=== PATIENT | male | born 1965 | race Caucasian/White ===

== ENCOUNTER 2024-02-07 16:46 | Inpatient (IN) | payer OTHER ==
[2024-02-07 18:43] VITALS: BMI 34.0
[2024-02-07] MEDS ORDERED: Acetaminophen 650 MG Suppository PR PRN (18:46)
[2024-02-07] MEDS ORDERED: Dextrose 50% Abboject 50 ML SYRINGE SLOW IVP PRN (19:16)
[2024-02-07] MEDS ORDERED: Glucagon 1 MG/ML KIT IM PRN (19:16)
[2024-02-07] MEDS ORDERED: Dextrose 5% in Water 1,000 ML IV PRN (19:16)
[2024-02-07] MEDS: Famotidine/PF 20 mg/2ml Vial SLOW IVP SCH (20:02)
[2024-02-07] MEDS: Ondansetron PF 4 MG/2 ML Vial IVP PRN (20:02)
[2024-02-07] MEDS: Morphine 2 MG/ML VIAL SLOW IVP PRN (20:02)
[2024-02-07] MEDS: Sodium Chloride 0.9% 1,000 ML IV SCH (20:03)
[2024-02-07] MEDS: Insulin Lispro 100 UNIT/ML 10 ML VIAL SC PRN (20:49)
[2024-02-07 23:50] LABS: Bacteria/HPF None Seen HPF (None Seen); Bilirubin Negative (Negative); Blood, Urine Negative (Negative); Clarity Clear (Clear); Glucose, Urine (Dipstick) Greater than 1000 mg/dL (Negative); Ketone, Urine 20 mg/dL (Negative); Leukocyte Negative Leu/uL (Negative); Nitrite Negative (Negative); Protein, Urine (Dipstick) Negative (Neg-Trace); RBC/HPF None Seen HPF (0-3); Specific Gravity, Urine 1.027 (1.002-1.036); Squamous Epithelial 0-3 HPF (0-3); WBC/HPF 0-3 HPF (0-3)
[2024-02-08 01:31] LABS: #Basophils 0.05 10x3/uL (0.0-0.2); #Eosinphils Less than 0.03 10x3/uL (0.0-0.7); %Basophils 0.2 % (0.0-1.0); %Lymphocytes 2.8 % (21.0-51.0); %Monocytes 6.1 % (0.0-10.0); %Neutrophils 90.3 % (42.0-75.0); Hematocrit 49.4 % (42.0-52.0); Mean Corpuscular HGB CONC 34.4 g/dL (32.0-36.0); Mean Corpuscular Hemoglobin 30.2 pg (27.0-31.0); Mean Corpuscular Volume 87.9 fL (78.0-98.0); Mean Platelet Volume 10.6 fL (7.4-10.4); Platelet Count 319 10x3/uL (130-400); RBC Distribution Width 18.5 % (11.5-14.5); Red Blood Cell (RBC) Count 5.62 mill/uL (4.70-6.10)
[2024-02-08 02:16] LABS: ALT (SGPT) 54 U/L (8-55); AST (SGOT) 58 U/L (5-34); Albumin 3.8 g/dL (3.5-5.0); Alkaline Phosphatase 66 U/L (40-110); Anion Gap 22 mmol/L (10-20); BUN (Urea Nitrogen) 33 mg/dL (8.4-25.7); Bilirubin, Total 9.6 mg/dL (0.2-1.2); Calc. Creatinine Clearance 100 mL/min (70-130); Calcium 8.6 mg/dL (7.8-10.44); Carbon Dioxide 13 mmol/L (22-29); Cardiac Risk 2.3 (Less than 4.5); Chloride 109 mmol/L (98-107); Cholesterol 80 mg/dl (< 200 Desired); Estimated GFR 57; Globulin 2.4 g/dL (2.4-3.5); Glucose 299 mg/dL (70-105); HDL Cholesterol 35 mg/dL (>60 Neg Risk); LDL Cholesterol, Calculated 24 mg/dL; Potassium 4.4 mmol/L (3.5-5.1); Protein, Total 6.2 g/dL (6.0-8.3); Sodium 140 mmol/L (136-145); Triglycerides 107 mg/dL (Less than 150)
[2024-02-08 02:17] LABS: Lipase 1970 U/L (8-78)
[2024-02-08] MEDS: Insulin Glargine 30 UNITS/0.3 ML VIAL SC SCH ×2 (02:55→16:46)
[2024-02-08] MEDS: Sodium Chloride 0.9% 1,000 ML IV SCH ×3 (02:55→11:31)
[2024-02-08] MEDS: Lactated Ringer's 1,000 ML IV SCH (02:56)
[2024-02-08 04:40] LABS: Actual Bicarbonate (HCO3v) 17.2 mEq/L (22-28); Base Excess -8.9 mEq/L (-2.0 to +3.0); Calcium, Ionized (venous) 1.06 mmol/L (1.16-1.32); Chloride (VBG) 101 mmol/L (98-106); Hematocrit-VBG 52 % (42.0-52.0); Hemoglobin (Hb) 17.7 g/dL (13.1-17.2); Potassium (VBG) 4.23 mmol/L (3.70-5.30); Sodium 138 mmol/L (133-146); pH (venous) 7.272 (7.32-7.43)
[2024-02-08] MEDS ORDERED: NS 0.9% w/ 20 MEQ KCL 1,000 ML IV PRN (04:47)
[2024-02-08] MEDS ORDERED: Electrolyte Replacement Protocol 1 EACH IVPB PRN (04:47)
[2024-02-08] MEDS ORDERED: Sodium Chloride 0.9% 1,000 ML IV PRN ×4 (04:47)
[2024-02-08 05:01] LABS: Lactic Acid 3.6 mmol/L (0.5-2.2)
[2024-02-08 05:02] VITALS: BP 127/86
[2024-02-08] MEDS: INSULIN REGULAR IN 0.9 % NACL 100 ML IVPB SCH (06:05)
[2024-02-08] MEDS: NS 0.9% w/ 20 MEQ KCL 1,000 ML IV PRN (06:05)
[2024-02-08 06:24] LABS: ALT (SGPT) 52 U/L (8-55); AST (SGOT) 54 U/L (5-34); Albumin 3.8 g/dL (3.5-5.0); Alkaline Phosphatase 62 U/L (40-110); Anion Gap 25 mmol/L (10-20); BUN (Urea Nitrogen) 34 mg/dL (8.4-25.7); Bilirubin, Total 6.2 mg/dL (0.2-1.2); Calc. Creatinine Clearance 90 mL/min (70-130); Calcium 8.6 mg/dL (7.8-10.44); Carbon Dioxide 15 mmol/L (22-29); Chloride 104 mmol/L (98-107); Estimated GFR 50; Globulin 2.4 g/dL (2.4-3.5); Glucose 269 mg/dL (70-105); Potassium 4.2 mmol/L (3.5-5.1); Protein, Total 6.2 g/dL (6.0-8.3); Sodium 140 mmol/L (136-145)
[2024-02-08] MEDS: Morphine 4 MG/ML VIAL SLOW IVP PRN (08:38)
[2024-02-08] MEDS: Enoxaparin 40 MG (0.4 mL) SYRINGE SC SCH (08:43)
[2024-02-08] MEDS ORDERED: Enoxaparin 30 MG (0.3 mL) SYRINGE SC SCH (09:00)
[2024-02-08 10:15] LABS: Anion Gap 19 mmol/L (10-20); BUN (Urea Nitrogen) 37 mg/dL (8.4-25.7); Calc. Creatinine Clearance 90 mL/min (70-130); Carbon Dioxide 15 mmol/L (22-29); Chloride 109 mmol/L (98-107); Estimated GFR 50; Glucose 213 mg/dL (70-105); Potassium 3.8 mmol/L (3.5-5.1); Sodium 139 mmol/L (136-145)
[2024-02-08] MEDS: Dextrose 50% Abboject 50 ML SYRINGE SLOW IVP PRN (11:29)
[2024-02-08] MEDS: Dextrose 5 %-0.45 % NaCl 1,000 ML IV PRN (11:29)
[2024-02-08 13:57] LABS: Anion Gap 15 mmol/L (10-20); BUN (Urea Nitrogen) 37 mg/dL (8.4-25.7); Calc. Creatinine Clearance 85 mL/min (70-130); Calcium 7.6 mg/dL (7.8-10.44); Carbon Dioxide 19 mmol/L (22-29); Chloride 109 mmol/L (98-107); Estimated GFR 47; Glucose 231 mg/dL (70-105); Potassium 3.6 mmol/L (3.5-5.1); Sodium 139 mmol/L (136-145)
[2024-02-08] MEDS: D5 1/2 NS w/20 mEq KCL 1,000 ML IV PRN (16:05)
[2024-02-08 16:24] LABS: ALT (SGPT) 35 U/L (8-55); AST (SGOT) 37 U/L (5-34); Albumin 3.2 g/dL (3.5-5.0); Alkaline Phosphatase 51 U/L (40-110); Anion Gap 14 mmol/L (10-20); BUN (Urea Nitrogen) 37 mg/dL (8.4-25.7); Bilirubin, Total 2.6 mg/dL (0.2-1.2); Calc. Creatinine Clearance 80 mL/min (70-130); Calcium 7.4 mg/dL (7.8-10.44); Carbon Dioxide 19 mmol/L (22-29); Chloride 109 mmol/L (98-107); Estimated GFR 43; Globulin 2.2 g/dL (2.4-3.5); Glucose 232 mg/dL (70-105); Magnesium 1.6 mg/dL (1.6-2.6); Phosphorus 1.9 mg/dL (2.3-4.7); Potassium 3.6 mmol/L (3.5-5.1); Protein, Total 5.4 g/dL (6.0-8.3); Sodium 138 mmol/L (136-145)
[2024-02-08 16:28] LABS: Lipase 1519 U/L (8-78)
[2024-02-08] MEDS ORDERED: HumaLOG 300 UNITS/3 ML VIAL SC PRN (16:33)
[2024-02-08] MEDS: Potassium Phosphate 15 MMOL in Sodium Chloride 0.9% 100 ML IVPB SCH (17:50)
[2024-02-08] MEDS: Magnesium 2 GM/50 ML(in water) 2 GM in Premix 1 BAG IVPB SCH (17:51)
[2024-02-08] MEDS ORDERED: Lactated Ringer's 1,000 ML IV SCH (18:00)
[2024-02-09 04:40] LABS: Hematocrit 44.5 % (42.0-52.0); Mean Corpuscular HGB CONC 33.7 g/dL (32.0-36.0); Mean Corpuscular Hemoglobin 30.4 pg (27.0-31.0); Mean Corpuscular Volume 90.1 fL (78.0-98.0); Mean Platelet Volume 10.2 fL (7.4-10.4); Platelet Count 190 10x3/uL (130-400); RBC Distribution Width 18.5 % (11.5-14.5); Red Blood Cell (RBC) Count 4.94 mill/uL (4.70-6.10)
[2024-02-09 04:55] LABS: Hemoglobin A1c 5.9 % (4.0-6.0)
[2024-02-09] MEDS: Metoprolol Tartrate 5 MG (5 mL) VIAL IVP SCH ×2 (05:02→13:13)
[2024-02-09] MEDS: Promethazine HCl 12.5 MG in Sodium Chloride 0.9% 50 ML IVPB PRN (05:03)
[2024-02-09 05:16] LABS: Lipase 897 U/L (8-78)
[2024-02-09 05:19] LABS: ALT (SGPT) 29 U/L (8-55); AST (SGOT) 36 U/L (5-34); Albumin 3.1 g/dL (3.5-5.0); Alkaline Phosphatase 53 U/L (40-110); Anion Gap 18 mmol/L (10-20); BUN (Urea Nitrogen) 40 mg/dL (8.4-25.7); Bilirubin, Total 3.2 mg/dL (0.2-1.2); Calc. Creatinine Clearance 75 mL/min (70-130); Calcium 7.1 mg/dL (7.8-10.44); Carbon Dioxide 16 mmol/L (22-29); Chloride 107 mmol/L (98-107); Estimated GFR 41; Globulin 2.5 g/dL (2.4-3.5); Glucose 194 mg/dL (70-105); Potassium 4.1 mmol/L (3.5-5.1); Protein, Total 5.6 g/dL (6.0-8.3); Sodium 137 mmol/L (136-145)
[2024-02-09] MEDS: Sodium Bicarb 50 MEQ/50 ML Abboject 8.4% SYRINGE IVP SCH (06:04)
[2024-02-09] MEDS: Sodium Chloride 0.9% 500 ML IV SCH (06:04)
[2024-02-09] MEDS: CALCIUM GLUC 1 GM/NS 50 ML 1 GM in Premix 1 BAG IVPB SCH (06:26)
[2024-02-09] MEDS: NS 4.6 GM IVPB SCH (07:11)
[2024-02-09] MEDS: CALCIUM GLUC IVPB SCH (07:11)
[2024-02-09] MEDS: Sodium Chloride 0.9% 1,000 ML IV SCH (12:32)
[2024-02-09] MEDS: Pantoprazole 40 MG VIAL IVP SCH (12:32)
[2024-02-10] MEDS ORDERED: ALPRAZolam 0.5 MG TAB PO PRN (00:01)
[2024-02-10] MEDS ORDERED: Bisacodyl 10 MG SUPP PR PRN (00:02)
[2024-02-10] MEDS: Fleet Saline Enema 133 ML BOT PR SCH (00:27)
[2024-02-10] MEDS: Metoprolol Tartrate 5 MG (5 mL) VIAL IVP SCH ×2 (02:35→02:45)
[2024-02-10] MEDS: dilTIAZem 25 MG/5 ML VIAL SLOW IVP SCH (03:21)
[2024-02-10] MEDS: dilTIAZem 125 MG in Sodium Chloride 0.9% 100 ML IVPB SCH (03:21)
[2024-02-10] MEDS: Metoprolol Tartrate 5 MG (5 mL) VIAL ONE ×2 (03:35)
[2024-02-10] MEDS: Acetaminophen 325 MG TAB PO PRN (04:42)
[2024-02-10] MEDS: Digoxin 0.5 MG/2 ML AMP SLOW IVP SCH (05:08)
[2024-02-10] MEDS: Piperacillin/Tazobactam 3.375 GM in Sodium Chloride 0.9% 100 ML IVPB SCH ×2 (08:59→09:00)
[2024-02-10] MEDS: Communication Order-Pharmacy FS ONE (09:01)
[2024-02-10] MEDS: Enoxaparin 100 MG (1 mL) SYRINGE SC SCH (09:21)
[2024-02-10] MEDS: Enoxaparin 30 MG (0.3 mL) SYRINGE SC SCH (09:21)
[2024-02-10 09:23] LABS: Anion Gap 18 mmol/L (10-20); BUN (Urea Nitrogen) 29 mg/dL (8.4-25.7); Calc. Creatinine Clearance 116 mL/min (70-130); Calcium 7.1 mg/dL (7.8-10.44); Carbon Dioxide 18 mmol/L (22-29); Chloride 108 mmol/L (98-107); Estimated GFR 63; Glucose 146 mg/dL (70-105); Potassium 3.4 mmol/L (3.5-5.1); Sodium 141 mmol/L (136-145)
[2024-02-10 09:27] LABS: ALT (SGPT) 20 U/L (8-55); AST (SGOT) 29 U/L (5-34); Albumin 2.8 g/dL (3.5-5.0); Alkaline Phosphatase 56 U/L (40-110); Anion Gap 18 mmol/L (10-20); BUN (Urea Nitrogen) 29 mg/dL (8.4-25.7); Calc. Creatinine Clearance 118 mL/min (70-130); Carbon Dioxide 14 mmol/L (22-29); Chloride 110 mmol/L (98-107); Estimated GFR 65; Glucose 146 mg/dL (70-105); Potassium 3.4 mmol/L (3.5-5.1); Protein, Total 5.8 g/dL (6.0-8.3); Sodium 139 mmol/L (136-145)
[2024-02-10 10:06] LABS: Hematocrit 38.1 % (42.0-52.0); Hemoglobin 12.4 g/dL (14.0-18.0); Platelet Count 191 10x3/uL (130-400)
[2024-02-10] MEDS: Amiodarone 150 MG in Dextrose 5% in Water 100 ML IVPB SCH (11:17)
[2024-02-10] MEDS: Potassium Chloride 20 MEQ TAB PO SCH (11:17)
[2024-02-10] MEDS: Sodium Chloride 0.9% 100 ML ONE (18:06)
[2024-02-10] MEDS: Amiodarone 450 MG in Dextrose 5% in Water 250 ML IVPB SCH (20:10)
[2024-02-11 05:39] LABS: Hematocrit 34.6 % (42.0-52.0); Hemoglobin 11.4 g/dL (14.0-18.0); Mean Corpuscular HGB CONC 32.9 g/dL (32.0-36.0); Mean Corpuscular Hemoglobin 30.1 pg (27.0-31.0); Mean Corpuscular Volume 91.3 fL (78.0-98.0); Mean Platelet Volume 9.6 fL (7.4-10.4); Platelet Count 169 10x3/uL (130-400); RBC Distribution Width 17.6 % (11.5-14.5); Red Blood Cell (RBC) Count 3.79 mill/uL (4.70-6.10)
[2024-02-11 06:03] LABS: Anion Gap 18 mmol/L (10-20); BUN (Urea Nitrogen) 20 mg/dL (8.4-25.7); Calc. Creatinine Clearance 159 mL/min (70-130); Calcium 7.3 mg/dL (7.8-10.44); Carbon Dioxide 17 mmol/L (22-29); Chloride 107 mmol/L (98-107); Estimated GFR 90; Glucose 173 mg/dL (70-105); Potassium 3.8 mmol/L (3.5-5.1); Sodium 138 mmol/L (136-145)
[2024-02-11] MEDS ORDERED: Enoxaparin 40 MG (0.4 mL) SYRINGE SC SCH ×2 (09:00→21:00)
[2024-02-11] MEDS: Heparin 10,000 UNITS/ 10 ML VIAL SLOW IVP SCH (13:03)
[2024-02-11] MEDS: Heparin 25,000 units/D5W 500 ML IV SCH (13:04)
[2024-02-11] MEDS ORDERED: PROPOFOL 40 ML ONE (17:42)
[2024-02-11] MEDS ORDERED: Atropine Sulfate 1 mg/10 ml Syringe ONE (17:43)
[2024-02-11] MEDS: Ipratropium/Albuterol 3 ML NEB ONE (19:09)
[2024-02-11] MEDS ORDERED: Ipratropium/Albuterol 3 ML NEB NEB PRN (19:34)
[2024-02-11] MEDS ORDERED: Enoxaparin 100 MG (1 mL) SYRINGE SC SCH (21:00)
[2024-02-12 04:22] LABS: Hematocrit 36.6 % (42.0-52.0); Hemoglobin 11.3 g/dL (14.0-18.0); Mean Corpuscular HGB CONC 30.9 g/dL (32.0-36.0); Mean Corpuscular Volume 97.1 fL (78.0-98.0); Mean Platelet Volume 10.2 fL (7.4-10.4); Platelet Count 155 10x3/uL (130-400); RBC Distribution Width 17.7 % (11.5-14.5); Red Blood Cell (RBC) Count 3.77 mill/uL (4.70-6.10)
[2024-02-12 05:26] LABS: Anion Gap 20 mmol/L (10-20); BUN (Urea Nitrogen) 16 mg/dL (8.4-25.7); Calc. Creatinine Clearance 163 mL/min (70-130); Calcium 7.6 mg/dL (7.8-10.44); Carbon Dioxide 12 mmol/L (22-29); Chloride 109 mmol/L (98-107); Estimated GFR 93; Glucose 243 mg/dL (70-105); Potassium 3.9 mmol/L (3.5-5.1); Sodium 137 mmol/L (136-145)
[2024-02-12 08:05] LABS: ALT (SGPT) 15 U/L (8-55); AST (SGOT) 33 U/L (5-34); Albumin 2.3 g/dL (3.5-5.0); Alkaline Phosphatase 99 U/L (40-110); Bilirubin, Direct 0.5 mg/dL (0.1-0.3); Bilirubin, Total 1.6 mg/dL (0.2-1.2); Protein, Total 5.4 g/dL (6.0-8.3)
[2024-02-12] MEDS: Ipratropium/Albuterol 3 ML NEB NEB SCH ×2 (08:10→14:00)
[2024-02-12] MEDS ORDERED: Midazolam HCl 2 mg/2 ml Vial ONE (09:06)
[2024-02-12] MEDS ORDERED: fentaNYL PF 100 MCG/2 ML SYRINGE ONE (09:06)
[2024-02-12] MEDS ORDERED: PROPOFOL 20 ML ONE (09:06)
[2024-02-12] MEDS: Sodium Bicarbonate 70 MEQ in Sodium Chloride 0.45% 1,000 ML IV SCH (09:26)
[2024-02-12] MEDS ORDERED: Glucagon 1 MG/ML KIT ONE ×2 (09:50→10:59)
[2024-02-12] MEDS ORDERED: Iopamidol 15 ML ONE (09:50)
[2024-02-12] MEDS ORDERED: EPINEPHrine 1 MG/ML VIAL ONE (09:50)
[2024-02-12] MEDS ORDERED: Bupivacaine 0.25% HCL 30 ML VIAL ONE (09:50)
[2024-02-12] MEDS ORDERED: Rocuronium Bromide 10 MG/ML (10ML VIAL) ONE (10:00)
[2024-02-12] MEDS ORDERED: Albuterol HFA (OR) 200 PUFF INH ONE (10:00)
[2024-02-12] MEDS ORDERED: Dexamethasone 20 MG/5 ML VIAL ONE (10:33)
[2024-02-12] MEDS ORDERED: Ondansetron PF 4 MG/2 ML Vial ONE (10:33)
[2024-02-12] MEDS ORDERED: SUGAMMADEX SODIUM 200 MG/2 ML VIAL ONE ×2 (11:27→11:44)
[2024-02-12] MEDS ORDERED: Dexmedetomidine 200 MCG/2 ML VIAL ONE (12:14)
[2024-02-12] MEDS: Amiodarone 200 MG TAB PO SCH (18:37)
[2024-02-13 04:45] LABS: #Basophils Less than 0.03 10x3/uL (0.0-0.2); #Eosinphils Less than 0.03 10x3/uL (0.0-0.7); %Basophils 0.1 % (0.0-1.0); %Monocytes 3.7 % (0.0-10.0); %Neutrophils 91.3 % (42.0-75.0); Hematocrit 31.9 % (42.0-52.0); Hematocrit 32.2 % (42.0-52.0); Hemoglobin 10.5 g/dL (14.0-18.0); Hemoglobin 10.7 g/dL (14.0-18.0); Mean Corpuscular HGB CONC 32.9 g/dL (32.0-36.0); Mean Corpuscular Hemoglobin 29.9 pg (27.0-31.0); Mean Corpuscular Volume 90.9 fL (78.0-98.0); Mean Platelet Volume 9.6 fL (7.4-10.4); Platelet Count 195 10x3/uL (130-400); Platelet Count 203 10x3/uL (130-400); RBC Distribution Width 17.9 % (11.5-14.5); Red Blood Cell (RBC) Count 3.51 mill/uL (4.70-6.10)
[2024-02-13 05:11] LABS: ALT (SGPT) 20 U/L (8-55); AST (SGOT) 32 U/L (5-34); Albumin 2.1 g/dL (3.5-5.0); Alkaline Phosphatase 91 U/L (40-110); Anion Gap 18 mmol/L (10-20); BUN (Urea Nitrogen) 21 mg/dL (8.4-25.7); Calc. Creatinine Clearance 140 mL/min (70-130); Calcium 7.9 mg/dL (7.8-10.44); Carbon Dioxide 18 mmol/L (22-29); Chloride 107 mmol/L (98-107); Estimated GFR 79; Globulin 3.1 g/dL (2.4-3.5); Glucose 266 mg/dL (70-105); Potassium 3.6 mmol/L (3.5-5.1); Protein, Total 5.2 g/dL (6.0-8.3); Sodium 139 mmol/L (136-145)
[2024-02-13] MEDS: Lisinopril 20 MG TAB PO SCH ×2 (09:21→20:45)
[2024-02-13] MEDS: Amlodipine 5 MG TAB PO SCH (09:21)
[2024-02-13] MEDS: Amiodarone 200 MG TAB PO SCH (09:21)
[2024-02-13] MEDS ORDERED: Lidocaine 2% PF 5 ML VIAL ONE (10:18)
[2024-02-13] MEDS ORDERED: SUCCINYLCHOLINE/SOD CL,ISO/PF 200 MG/10 ML SYRINGE FS ONE (10:18)
[2024-02-13] MEDS ORDERED: Indomethacin 50 MG SUPP ONE (11:05)
[2024-02-13] MEDS ORDERED: Iopamidol 30 ML ONE (11:05)
[2024-02-13] MEDS ORDERED: Dexamethasone 4 mg/ml Vial ONE (11:13)
[2024-02-13] MEDS ORDERED: Ondansetron PF 4 MG/2 ML Vial ONE (11:13)
[2024-02-13] MEDS ORDERED: Dexmedetomidine 200 MCG/2 ML VIAL ONE (11:13)
[2024-02-13] MEDS ORDERED: PROPOFOL 20 ML ONE (11:14)
[2024-02-13 14:23] VITALS: BMI 36.7
[2024-02-13] MEDS: Enoxaparin 40 MG (0.4 mL) SYRINGE SC SCH (20:45)
[2024-02-13] MEDS: traMADol HCl 50 MG TAB PO PRN (23:08)
[2024-02-14 04:07] LABS: #Basophils Less than 0.03 10x3/uL (0.0-0.2); #Eosinphils Less than 0.03 10x3/uL (0.0-0.7); %Basophils 0.1 % (0.0-1.0); %Lymphocytes 3.5 % (21.0-51.0); %Monocytes 6.9 % (0.0-10.0); %Neutrophils 87.8 % (42.0-75.0); Hematocrit 31.6 % (42.0-52.0); Hemoglobin 10.6 g/dL (14.0-18.0); Mean Corpuscular HGB CONC 33.5 g/dL (32.0-36.0); Mean Corpuscular Hemoglobin 29.7 pg (27.0-31.0); Mean Corpuscular Volume 88.5 fL (78.0-98.0); Platelet Count 232 10x3/uL (130-400); RBC Distribution Width 17.4 % (11.5-14.5); Red Blood Cell (RBC) Count 3.57 mill/uL (4.70-6.10)
[2024-02-14 04:35] LABS: ALT (SGPT) 19 U/L (8-55); AST (SGOT) 33 U/L (5-34); Alkaline Phosphatase 92 U/L (40-110); Anion Gap 14 mmol/L (10-20); BUN (Urea Nitrogen) 32 mg/dL (8.4-25.7); Bilirubin, Total 0.8 mg/dL (0.2-1.2); Calc. Creatinine Clearance 134 mL/min (70-130); Calcium 7.9 mg/dL (7.8-10.44); Carbon Dioxide 23 mmol/L (22-29); Chloride 102 mmol/L (98-107); Estimated GFR 74; Globulin 2.9 g/dL (2.4-3.5); Glucose 292 mg/dL (70-105); Potassium 3.5 mmol/L (3.5-5.1); Protein, Total 4.9 g/dL (6.0-8.3); Sodium 135 mmol/L (136-145)
[2024-02-14 11:29] VITALS: TEMP 97.9
== END 2024-02-14 15:45 | disposition home or self-care (01) | DRG 417 ==
LOC: T4-A 17:57 → IMCU/EMU 02-08 05:17
PROVIDERS: ADMIT Internal Medicine; ATTEND Family Medicine
PROC: 0FT44ZZ Resection of Gallbladder, Percutaneous Endoscopic Approach (ICD-10-PCS; principal; 2024-02-12)
PROC: BF13YZZ Fluoroscopy of Gallbladder and Bile Ducts using Other Contrast (ICD-10-PCS; 2024-02-12)
PROC: 5A2204Z Restoration of Cardiac Rhythm, Single (ICD-10-PCS; 2024-02-12)
PROC: 0FC98ZZ Extirpation of Matter from Common Bile Duct, Via Natural or Artificial Opening Endoscopic (ICD-10-PCS; 2024-02-13)
DX: K85.10 Biliary acute pancreatitis without necrosis or infection (principal); E11.00 Type 2 diabetes mellitus with hyperosmolarity without nonketotic hyperglycemic-hyperosmolar coma (NKHHC); E11.10 Type 2 diabetes mellitus with ketoacidosis without coma; K80.42 Calculus of bile duct with acute cholecystitis without obstruction; N17.9 Acute kidney failure, unspecified; E11.65 Type 2 diabetes mellitus with hyperglycemia; E66.9 Obesity, unspecified; I48.0 Paroxysmal atrial fibrillation; I10 Essential (primary) hypertension; Z79.84 Long term (current) use of oral hypoglycemic drugs; Z68.38 Body mass index [BMI] 38.0-38.9, adult; Z88.2 Allergy status to sulfonamides; Z79.82 Long term (current) use of aspirin; Z79.01 Long term (current) use of anticoagulants; Z79.899 Other long term (current) drug therapy; Z87.891 Personal history of nicotine dependence; B96.20 Unspecified Escherichia coli [E. coli] as the cause of diseases classified elsewhere; J30.9 Allergic rhinitis, unspecified; Z79.85 Long-term (current) use of injectable non-insulin antidiabetic drugs; Z79.4 Long term (current) use of insulin; Z96.41 Presence of insulin pump (external) (internal)
CPT/HCPCS: 36415; 36416; 47532; 71045; 74018; 74330; 76705; 80048; 80053; 80061; 80076; 82010; 82805; 83036; 83605; 83690; 83735; 84100; 85014; 85018; 85025; 85027; 85049; 85730; 87040; 88304; 93005; 93010; 93306; 94640; A4649; A6258; C1713; J0171; J0282; J0461; J0613; J0665; J1100; J1160; J1611; J1644; J1650; J1815; J2001; J2250; J2272; J2405; J2470; J2543; J2550; J2704; J3475; J3480; J3490; J7030; J7042; J7070; J7120; J7620; J7999; Q9967

== ENCOUNTER 2024-05-05 08:26 | Outpatient (CLI) | payer BC | END 2024-05-05 08:27 | disposition home or self-care (01) | LOC: BICULT 08:26 | PROVIDERS: ATTEND Nurse Practitioner Family | DX: R17 Unspecified jaundice (principal) | CPT/HCPCS: 76705 ==